=== PATIENT | male | born 1985 | race Caucasian/White ===

== ENCOUNTER 2017-01-02 18:00 | Inpatient (IN) | payer OTHER ==
--- NOTE | ~2017-01-02 | DS ---
Unit #: [id number] #: [id number] Patient: EVERARDO MCKINNON [id number] [facility] [address] [place] [address] [id number] I MR#: [id number] NAME: EVERARDO MCKINNON. ROOM: P180 Age: 31 Sex: M Admission Date: 01/02/2017 : 1985 Discharge Date: 01/07/2017 Attending Physician: Froylan Augustine M.D. Primary Care Physician: Primary Care Physician No DISCHARGE SUMMARY REASON FOR ADMISSION Everardo is a 31-year-old man with a history schizoaffective disorder who has been off of his medications. He reported that he recently restarted but this has not had time to take effect and he ongoing suicidal ideation with a plan to hang himself. He was admitted for stabilization. LABORATORY DATA Please see hospital chart. HOSPITAL COURSE Everardo was admitted and placed on suicide precautions. His medications were confirmed and restart. He requested to attend psychotherapy groups and activities with both chemical dependence and psychiatric focus and participated appropriately. On the date of discharge he contracted for safety in the outpatient setting. DISCHARGE DIAGNOSIS AXIS I: Schizoaffective order bipolar type. Polysubstance abuse in full sustained remission. AXIS II: No diagnosis. AXIS III: Obesity, history of hypertension. INSTRUCTIONS TO PATIENT Follow up with the [facility] and primary care physician. DISCHARGE MEDICATIONS 1. Prozac 20 mg daily for depression 2. Seroquel 300 mg at bedtime for psychosis 3. Clonidine 0.1 mg every 12 hours for hypertension CONDITION ON DISCHARGE Improved. PROGNOSIS Fair to good. DIET AND ACTIVITY Per primary care doctor. Dictated by... rFoylan Augustine M.D. [facility]/gabriela Unit #: [id number] #: [id number] Patient: EVERARDO MCKINNON TD: 03/09/2017 01:11 JOB #: [id number] DISCHARGE SUMMARY Page 1 of 1 X Froylan Augustine MD X DISCHARGE SUMMARY
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
--- NOTE | ~2017-01-02 | CO ---
Unit #: [id number] #: [id number] Patient: ISMA MCKINNON [id number] [place] [address] [id number] I MR#: [id number] NAME: ISMA MCKINNON. ROOM: P180 Age: 31 Sex: M Admission Date: 01/02/2017 : 1985 Attending Physician: Froylan Augustine M.D. Primary Care Physician: Primary Care Physician No Consultation Date: 01/05/2017 CONSULTATION REPORT HISTORY OF PRESENT ILLNESS Josselin blood pressure on admission 150/97, reports history of high blood pressure present medication at home. Since admission, his blood pressures was in 135/89, 128/76 and 142/93. He is not having any chest pain or headache. No other complaints. PHYSICAL EXAMINATION CARDIAC: Regular rate and rhythm. No murmurs, gallops, or rubs. RESPIRATORY: Clear to auscultation bilaterally. ASSESSMENT AND PLAN Elevated blood pressure. We will begin clonidine 0.1 mg p.o. q.12 hours p.r.n. blood pressures greater than 140/90. Please notify, if blood pressures are chronically elevated. The patient instructed to follow up with primary care provider. Dictated by... Melvi Diego A.P.R.N. for Yanet Jarrell/margarette TD: 01/05/2017 23:33 JOB #: [id number] CONSULTATION REPORT Page 1 of 1 X MELVI HOWARD APRN CONSULTATION REPORT
--- NOTE | ~2017-01-02 | HP ---
Unit #: [id number] #: [id number] Patient: EVERARDO MCKINNON [id number] [place] [address] [id number] I MR#: [id number] NAME: EVERARDO MCKINNON. ROOM: P180 Age: 31 Sex: M Admission Date: 01/02/2017 : 1985 Attending Physician: Froylan Augustine M.D. Admitting Physician: Froylan Augustine M.D. Primary Care Physician: Primary Care Physician No HISTORY AND PHYSICAL HISTORY OF PRESENT ILLNESS Everardo is a 31 year old admitted to [facility] with anxiety and verbalizing wanting to hurt himself. He has had other admissions to this facility. PAST MEDICAL HISTORY 1. Morbid obesity 2. High blood pressure 3. History of TBI PAST SURGICAL HISTORY Oral ALLERGIES Sulfa, penicillin, iodine. SOCIAL HISTORY He denies cigarettes, alcohol and illicit drug use. FAMILY HISTORY Medically noncontributory. REVIEW OF SYSTEMS CONSTITUTIONAL: No fever or chills. HEENT: Denies any sore throat, ear pain or runny nose. CARDIOVASCULAR: Denies chest pain, irregular heart rhythm or palpitations. CHEST: Denies shortness of breath or cough. No hemoptysis. GASTROINTESTINAL: Denies nausea, vomiting, diarrhea or chronic constipation. ENDOCRINE: Denies history of increased thirst or urination. No recent significant weight loss or gain. GENITOURINARY: Denies dysuria, frequency, or hematuria. SKIN: Denies any rashes. HEMATOLOGIC: Denies history of increased bleeding or bruising. MUSCULOSKELETAL: Denies any hot, swollen joints. No generalized muscle pain. NEUROLOGIC: Denies problems with vision or speech. No frequent, severe headaches. No numbness, tingling or weakness in any extremities. Denies loss of bladder or bowel control. CURRENT MEDICATIONS 1. Seroquel 300 mg q.h.s. 2. Vistaril 50 mg q.6 hours p.r.n. Unit #: [id number] #: [id number] Patient: EVERARDO MCKINNON 3. Prozac 20 mg q day 4. Milk of Magnesia p.r.n. 5. Maalox p.r.n. 6. Tylenol p.r.n. PHYSICAL EXAMINATION GENERAL: Alert, well-nourished, in no apparent distress. VITAL SIGNS: Blood pressure 142/92, heart rate 88, respirations 16, temperature 98.6. WEIGHT: 276 pounds. HEIGHT: 5'7". SKIN: Warm and dry without rash or lesion. HEENT: Normocephalic. TMs not viewed. Oral and nasal passages clear. Conjunctivae clear. Pupils equal, round and reactive to light and accommodation. Extraocular movements intact. NECK: Supple without lymphadenopathy or thyromegaly. HEART: Regular rate and rhythm without murmur. LUNGS: Clear. ABDOMEN: Soft, nontender. : Not done. EXTREMITIES: No evidence of cyanosis, clubbing or edema. Moves all extremities without focal deficit. NEUROLOGICAL: Unable to complete extended exam. He does move all extremities without focal deficit. Hand geological manager is equal and gait is normal. IMPRESSION Psychiatric admission RECOMMENDATIONS PSYCHIATRIC: Per psychiatrist. MEDICAL: I see no contraindications to participating in facility's activities. MEDICAL PROGNOSIS Good. MEDICAL CONDITION Stable. Dictated by... Kristal Huerta P.A.-C. for Yanet Jarrell/gabriela TD: 01/04/2017 01:13 JOB #: [id number] Unit #: [id number] #: [id number] Patient: EVERARDO MCKINNON HISTORY AND PHYSICAL Page 1 of 1 X Kristal Huerta HISTORY AND PHYSICAL
[2017-01-03 09:47] LABS: BASOPHIL# 0.1 X10e3 (0-0.3); BASOPHIL% 0.8 % (0-2.5); EOSINOPHIL# 0.5 X10e3 (0-0.7); EOSINOPHIL% 6.3 % (0.0-7.0); HEMATOCRIT 43.7 % (38.0-50.0); HEMOGLOBIN 14.3 gm/dL (13.0-16.0); LYMPHOCYTE# 2.6 X10e3 (1.0-3.5); LYMPHOCYTE% 33.1 % (17.0-45.0); MEAN CELL VOLUME 88.6 FL (83-96); MEAN CORPUSCULAR HGB CONC 32.8 g/dL (30-36); MEAN PLATELET VOLUME 8.1 FL (6.5-11.5); MONOCYTE# 0.6 X10e3 (0-1.0); NEUTROPHIL# 4.1 X10e3 (1.5-7.1); NEUTROPHIL% 51.8 % (40-75); PLATELET COUNT 229 X10e3 (140-420); RED BLOOD COUNT 4.93 X10e (3.90-5.60); RED CELL DISTRIBUTION WIDTH 13.9 % (11.0-15.5); WHITE BLOOD COUNT 7.9 X10e3 (4.0-10.5)
[2017-01-03 09:59] LABS: DIFF IND NO
[2017-01-03 10:16] LABS: ALBUMIN SERUM 3.8 g/dL (3.5-5.0); BILIRUBIN,TOTAL 0.6 mg/dL (0.2-2.0); BUN/CREATININE RATIO 22.85; CALCIUM SERUM 8.8 mg/dL (8.4-10.2); CREATININE SERUM 0.7 mg/dL (0.6-1.4); GLOM FILT RATE Estimated 125.8 mL/min (>60); POTASSIUM 4.1 mmol/L (3.5-5.1); PROTEIN TOTAL SERUM 6.3 g/dL (6.0-8.3)
[2017-01-03 13:23] LABS: AMPHETAMINE NEG (NEG); BARBITURATES NEG (NEG); BENZODIAZEPINES NEG (NEG); COCAINE NEG (NEG); MARIJUANA NEG (NEG); OPIATES NEG (NEG); TRICYCLIC ANTIDEPRESSANTS NEG (NEG); U METHADONE NEG (NEG)
== END 2017-01-07 15:37 | disposition home or self-care (01) | DRG 885 ==
LOC: P1E 21:24
PROVIDERS: Psychiatry & Neurology Psychiatry
DX: F25.0 Schizoaffective disorder, bipolar type (principal); E66.01 Morbid (severe) obesity due to excess calories; I10 Essential (primary) hypertension; Z87.898 Personal history of other specified conditions; E66.9 Obesity, unspecified; Z87.820 Personal history of traumatic brain injury; Z88.0 Allergy status to penicillin; Z88.2 Allergy status to sulfonamides
CPT/HCPCS: 80053; 80307; 85025